=== PATIENT | male | born 1975 | race Caucasian/White ===

== ENCOUNTER → 2020-05-19 15:16 | Outpatient (CLI) | payer OTHER, SELFPAY ==
--- NOTE | 2020-05-18 14:05 | NEUR_PTH ---
PATIENT: OLLIE ARTEAGA LOC: [facility] U#:[id number] AGE/SX: 49/M ROOM: RE05/19/[address]: ANDRADE MullinsM : 1975 BED: DIS: SPEC #: [id number] RECD: 05/19/20 15:08 STATUS: KEVIN ZENOBIA #: [id number] PANDA: 05/18/20 14:[address]: Cipriano Renae DEPT: SURGICAL PATHOLOGY RECD BY: Alannah Ley ENTERED: 05/20/20 08:09 SP TYPE: NEUROMA OTHR DR: Dr. Francisco Alexis MD [facility] Tissues: NEUROMA Procedures: Surgery Specimen Level III HEADER OPERATION: Excision of Fay's neuroma left foot PRE-OP DIAGNOSIS: Left foot Fay's neuroma TISSUE SUBMITTED: Fay's neuroma left foot MICROSCOPIC DIAGNOSIS Fay's neuroma left foot, excision: Consistent with Fay's neuroma. SJ:marciano 05/23/20 MICROSCOPIC DESCRIPTION Slides are reviewed. GROSS DESCRIPTION Received is one container labeled with the patient's name and not further designated. The specimen consists of an irregular piece of wong soft tissue that measures 2 x 1 x 0.3 cm. The entire specimen is submitted in one cassette. / DEJON:marciano 05/20/20 TC:5 CPT: 81087
== END ==
PROVIDERS: PCP Family Medicine; Visit Provider Podiatrist Foot & Ankle Surgery
DX: G57.62 Lesion of plantar nerve, left lower limb (principal)
CPT/HCPCS: 88304